=== PATIENT | female | born 1985 | race Caucasian/White ===

== ENCOUNTER → 2021-02-01 | Outpatient (CLI) | payer BC, MEDICAID ==
[~2021-02-01] MED LIST: CLIN300C3 PO; CYCL10TA9 PO; DOXY-233 PO; ESTR1TAB24 PO; ESTROTEST; IBUP-30 PO; MULT1CAP27 PO; NAPR-243 PO; NITR-65 PO; PHEN100T17 PO; PRD20T PO; PRED20TA PO; PROM25SU10; TRM50T PO
--- NOTE | 2021-02-01 16:25 | Diagnostic Imaging Report ---
INDICATION: Abdominal pain. History of constipation. COMPARISON: 01/17/2012. EXAMINATION: Two supine radiographic views of the abdomen were obtained. FINDINGS: Nondistended loops of small bowel. There is no large collection of free peritoneal air. Moderate air and stool are seen scattered throughout the colon. No unexpected radiopaque foreign body is seen. There is, however, a 13 x 5 mm extraosseous calcification projecting over the right psoas muscle at the level of the L4 transverse process. This appears to be new when compared to prior exam. 5 mm extraosseous calcifications are also seen projecting over the lower left psoas muscle at the level of the left S1 vertebral body. Please note, there is transitional lumbosacral anatomy. Bony structures show no gross acute abnormality. IMPRESSION: 1. Nonobstructed small bowel gas pattern. 2. Moderate colonic air and stool. Please correlate for constipation. 3. Extraosseous calcifications project over the bilateral psoas muscles. This could be artifact and related to gonadal vein phleboliths, but ureteral calculi cannot be entirely excluded. If further evaluation is indicated, CT is recommended. Dictated by: Dictated on workstation # [id number]
== END ==
LOC: RAD 15:15
PROVIDERS: ATTEND Family Medicine
DX: K59.00 Constipation, unspecified (principal); R10.9 Unspecified abdominal pain
CPT/HCPCS: 74018

== ENCOUNTER 2021-03-23 05:31 | Outpatient (RCR) | payer BC ==
[~2021-03-23] VITALS: Ht 175.2 cm; Wt 79.7 kg
[~2021-03-23 05:31] MED LIST changes: +ETAN50CA SQ; +FOLI1TAB33 PO; +POTA10TA36 PO; +SOLI10TA2 PO
== END 2021-03-23 13:04 | disposition home or self-care (01) ==
LOC: PREOP 05:31
PROVIDERS: ATTEND Surgery
DX: Z01.812 Encounter for preprocedural laboratory examination (principal); R10.9 Unspecified abdominal pain; Z20.822 Contact with and (suspected) exposure to COVID-19
CPT/HCPCS: 87635

== ENCOUNTER 2021-03-27 10:53 | Day surgery (SDC) | payer BC ==
[~2021-03-27] VITALS: Ht 175 cm; Wt 79.7 kg
[2021-03-27] MEDS ORDERED: LACTATED RINGERS 1,000 ML IV STA (11:14)
[2021-03-27] MEDS ORDERED: HURRICAINE EXT TUBE (BENZOCAINE) XX PRN (11:15)
[2021-03-27] MEDS ORDERED: LACTATED RINGERS 1,000 ML IV ONE (11:18)
[2021-03-27 11:20] VITALS: BP 128/83
--- NOTE | 2021-03-27 11:43 | Progress Note-Pre Operative ---
Pre-Operative Progress Note H&P Reviewed The H&P was reviewed, patient examined and no changes noted. Time Seen by Provider: 11:41 Date H&P Reviewed: Mar 27, 2021 Time H&P Reviewed: 11:41 Pre-Operative Diagnosis: LUQ pain and hx of Gastritis RAYSHAWN REYES DO Mar 27, 2021 11:43
[2021-03-27] MEDS ORDERED: MIDAZOLAM 2 MG/2 ML (VERSED) VIAL ONE (12:10)
[2021-03-27] MEDS ORDERED: PROPOFOL INJECTION 50 ML IV ONE (12:10)
[2021-03-27 12:20] VITALS: BP 102/59
--- NOTE | 2021-03-27 12:24 | Progress Note-Post Operative ---
Post-Operative Progess Note Surgeon (s)/Aircraft Engine Dismantler (s) Surgeon RAYSHAWN REYES DO Aircraft Engine Dismantler: none Pre-Operative Diagnosis LUQ pain and hx of Gastritis Post-Operative Diagnosis Gastritis Procedure & Operative Findings Date of Procedure 03/27/21 Procedure Performed/Findings PROCEDURE NOTE: After informed consent was obtained, the patient was brought to the endoscopy suite, placed in bed in left lateral decubitus position. She was administered IV sedation by the BRIDGE CONTRACTOR who then monitored her vitals the entire time, heart rate, blood pressure and pulse ox and the scope was inserted down the mouth through the esophagus into the stomach. Pushed into the stomach, past the antrum into the duodenum. Duodenum looked good. Pulled back and noted gastritis, did a biopsy of antrum, then retroflexed the scope, did not see hiatal hernia, took a picture and then pulled the scope into the GE junction, took another picture of the and then did a biopsy of the GE junction. Pushed the scope back into the stomach, suctioned all the air out of the stomach and then pulled the scope up the esophagus, took some pictures in the esophagus. At this point pulled the scope up the esophagus and out the mouth. The patient tolerated the procedure, and she recovered in endoscopy suite. Anesthesia Type IV sedation by BRIDGE CONTRACTOR Estimated Blood Loss Estimated blood loss (mL): scant Specimens/Packing Specimens Removed antral bx body of stomach bx GE jxn bx RAYSHAWN REYES DO Mar 27, 2021 12:24
[2021-03-27 12:25] VITALS: BP 102/57
--- NOTE | 2021-03-27 12:25 | Endoscopy Discharge Instruct ---
Endo Procedure/Findings Findings 1.: Gastritis Discharge Instructions - Activity: You might feel a little sleepy until tomorrow. This is due to the medicine you received to relax you. Until tomorrow, you should: NOT drive a car, operate machinery or power tools. NOT drink any alcoholic beverages. NOT make any important decisions or sign importortant papers. Do not return to work until tomorrow, unless otherwise instructed. Resume previous activities tomorrow. Diet: Start by taking liquids. If you tolerate liquids, advance to solid food. 1.: EGD in 3 years Notify Physician - If you experience excessive bleeding, unusual abdominal pain, fever, or chest pain, contact your doctor immediately. RAYSHAWN REYES DO Mar 27, 2021 12:25
[2021-03-27 12:28] VITALS: BP 115/59
[2021-03-27 12:30] VITALS: BP 118/63
[2021-03-27 13:00] VITALS: BP 111/77
--- NOTE | 2021-03-27 13:07 | Anesthesia-General Post-Op ---
MAC Patient Condition Mental Status/LOC: Same as Preop Cardiovascular: Satisfactory Nausea/Vomiting: Absent Respiratory: Satisfactory Pain: Controlled Complications: Absent Post Op Complications Complications None Follow Up Care/Instructions Patient Instructions None needed. Anesthesiology Discharge Order Discharge Order Patient is doing well, no complaints, stable vital signs, no apparent adverse anesthesia problems. SHANE CACERES DO Mar 27, 2021 13:07
== END 2021-03-27 13:05 | disposition home or self-care (01) ==
LOC: ENDO 10:53
PROVIDERS: ATTEND Surgery
DX: K29.50 Unspecified chronic gastritis without bleeding (principal); K21.00 Gastro-esophageal reflux disease with esophagitis, without bleeding; K59.00 Constipation, unspecified; Z79.899 Other long term (current) drug therapy; Z87.891 Personal history of nicotine dependence
CPT/HCPCS: 88305

== ENCOUNTER → 2021-04-07 | Outpatient (CLI) | payer BC ==
--- NOTE | 2021-04-07 09:45 | Diagnostic Imaging Report ---
PROCEDURE: US Gallbladder. TECHNIQUE: Multiple real-time grayscale images were obtained over the right upper quadrant in various projections. INDICATION: Right upper quadrant pain and left lower quadrant pain. FINDINGS: Liver is upper limits of normal in size at 17.8 cm. The portal vein is patent and shows normal direction of flow. No discrete liver mass is detected. Gallbladder is without stones or sludge. There is no wall thickening. No biliary ductal dilatation is seen. Visualized pancreas unremarkable. Aorta is nonaneurysmal. IVC is patent. Right kidney is without calculi or hydronephrosis. There is no ascites. IMPRESSION: Unremarkable gallbladder ultrasound. Dictated by: Dictated on workstation # [id number]
== END ==
LOC: RAD 08:00
PROVIDERS: ATTEND Surgery
DX: R10.32 Left lower quadrant pain (principal); R10.11 Right upper quadrant pain
CPT/HCPCS: 76705

== ENCOUNTER → 2021-04-27 | Outpatient (CLI) | payer BC ==
[~2021-04-27] MED LIST changes: +CATHETER FLUSH 10 ML SYR IV PRN
--- NOTE | 2021-04-27 13:10 | Diagnostic Imaging Report ---
INDICATION: Right upper quadrant pain. TECHNIQUE: Patient received intravenous dose of 5.1 mCi technetium-99m Choletec. Sequential imaging over the abdomen was performed. At the 30-minute interval, the patient ingested a fatty meal consisting of 8 ounces of Ensure, and continued acquisitions and gallbladder ejection quantification was performed. FINDINGS: There is prompt homogeneous distribution of radiopharmacy throughout the liver parenchyma. Within 15-minute time activity, it can be seen accumulating within the gallbladder as well as the extrahepatic bile ducts. Activity freely spilled into the proximal bowel with no scintigraphic evidence for extravasation or biliary obstruction. With fatty meal ingestion, there was normal gallbladder ejection fraction of 52%. Ensure ingestion resulted in no patient complaint. IMPRESSION: This was a normal nuclear medicine hepatobiliary scan with normal fatty meals, stimulated gallbladder ejection fraction of 52%. Dictated by: Dictated on workstation # [id number]
== END ==
LOC: CARD 10:00
PROVIDERS: ATTEND Surgery
DX: R10.11 Right upper quadrant pain (principal); R10.32 Left lower quadrant pain
CPT/HCPCS: 78227; A9537

== ENCOUNTER 2021-06-22 05:39 | Outpatient (CLI) | payer BC ==
[~2021-06-22] VITALS: Ht 175.3 cm; Wt 80.9 kg
[~2021-06-22 05:39] MED LIST changes: -CATHETER FLUSH 10 ML SYR IV PRN
[2021-06-22] MEDS ORDERED: VITA1TAB78 PO (14:41)
[2021-06-22] MEDS ORDERED: MAGN100T5 PO (14:41)
[2021-06-22] MEDS ORDERED: ASCO100T6 PO (14:41)
[2021-06-22] MEDS ORDERED: L.AC1CAP6 PO (14:41)
== END 2021-06-22 15:20 | disposition home or self-care (01) ==
LOC: PREOP 05:39
PROVIDERS: ATTEND Urology
DX: Z01.818 Encounter for other preprocedural examination (principal)

== ENCOUNTER 2021-06-29 06:20 | Day surgery (SDC) | payer BC ==
[2021-06-29] VITALS (13 sets, daily range): BP systolic 114–143; BP diastolic 57–96
[~2021-06-29] VITALS: Ht 175.3 cm; Wt 80.9 kg
[~2021-06-29 06:20] MED LIST changes: +ASCO100T6 PO; +L.AC1CAP6 PO; +MAGN100T5 PO; +VITA1TAB78 PO
[2021-06-29] MEDS ORDERED: cefTRIAXone 1,000 MG in WATER (STERILE) FOR INJECTION 10 ML IV ONE (06:45)
[2021-06-29] MEDS ORDERED: ONDANSETRON 4 MG/2 ML (SDV) Z0FRAN ONE (07:04)
[2021-06-29] MEDS ORDERED: fentaNYL INJ 100 MCG/2 ML AMP ONE ×2 (07:04→09:26)
[2021-06-29] MEDS ORDERED: LIDOCAINE PF 2% 5 ML (XYLOCAINE) VIAL ONE (07:04)
[2021-06-29] MEDS ORDERED: ROCURONIUM 10 MG/ML 5 ML SYRINGE IV ONE (07:04)
[2021-06-29] MEDS ORDERED: proPOfol 200 MG/20 ML (DIPRIVAN) VIAL IV ONE (07:04)
[2021-06-29] MEDS ORDERED: MIDAZOLAM 2 MG/2 ML (VERSED) VIAL ONE (07:04)
[2021-06-29] MEDS: LACTATED RINGERS 1,000 ML IV PRN ×2 (07:08→18:55)
[2021-06-29] MEDS ORDERED: ONDANSETRON 4 MG/2 ML (SDV) Z0FRAN IV ONE (07:15)
[2021-06-29] MEDS ORDERED: FAMOTIDINE 20MG/2ML IV (PEPCID) IV ONE (07:15)
[2021-06-29] MEDS ORDERED: SCOPOLAMINE 1.5 MG (TRANSDERM-SCOP) PATCH TOP ONE (07:15)
--- NOTE | 2021-06-29 08:08 | Progress Note-Pre Operative ---
Pre-Operative Progress Note H&P Reviewed The H&P was reviewed, patient examined and no changes noted. Date Seen by Provider: Jun 29, 2021 Time Seen by Provider: 08:08 Date H&P Reviewed: Jun 29, 2021 Time H&P Reviewed: 08:08 Pre-Operative Diagnosis: CYSTOCELE AND XIMENA EH ORTA MD Jun 29, 2021 08:08
--- NOTE | 2021-06-29 08:11 | Progress Note-Post Operative ---
Post-Operative Progess Note Surgeon (s)/Tanbark Laborer (s) Surgeon EH ORTA MD Tanbark Laborer: NONE Pre-Operative Diagnosis CYSTOCELE AND XIMENA Post-Operative Diagnosis SAME Procedure & Operative Findings Date of Procedure 06/29/21 Procedure Performed/Findings ANTERIOR REPAIR, PVS AND CYSTOSCOPY Anesthesia Type GENERAL Estimated Blood Loss Estimated blood loss (mL): LESS THAN 50 cc Specimens/Packing Specimens Removed NONE TO PATH Packing: ESTRACE VAGINAL PACK EH ORTA MD Jun 29, 2021 08:11
[2021-06-29] MEDS ORDERED: LACTATED RINGERS 1,000 ML IV SCH (08:15)
[2021-06-29] MEDS ORDERED: ESTRADIOL VAGINAL CREAM 42.5 GM (ESTRACE) VG ONE (08:24)
[2021-06-29] MEDS ORDERED: LIDOCAINE/EPI 1%-1:100,000 (XYLOCAINE) 10 ML ONE (08:25)
[2021-06-29] MEDS ORDERED: NEOSTIGMINE 3 MG/3 ML VIAL ONE (08:59)
[2021-06-29] MEDS ORDERED: GLYCOPYRROLATE 0.2 MG/ML (ROBINUL) 2 ML VIAL ONE (08:59)
[2021-06-29] MEDS ORDERED: SEVOFLURANE (ULTANE) 15 ML INHAL SOLN ONE (09:13)
[2021-06-29] MEDS ORDERED: PROMETHAZINE INJ 25 MG/ML (PHENERGAN) AMP IVP ONE (09:30)
[2021-06-29] MEDS ORDERED: fentaNYL INJ 100 MCG/2 ML AMP IVP ONE (09:30)
--- NOTE | 2021-06-29 09:57 | OPERATIVE REPORT ---
DATE OF SERVICE: 06/29/2021 PREOPERATIVE DIAGNOSIS: Cystocele and stress urinary incontinence. POSTOPERATIVE DIAGNOSES: Cystocele and stress urinary incontinence. OPERATION PERFORMED: Anterior repair and a pubovaginal sling with cystoscopy. SURGEON: Ney Orta MD ANESTHESIA: General. COMPLICATIONS: None. DESCRIPTION OF PROCEDURE: Under satisfactory general anesthesia, the patient in extended lithotomy position, genitalia, abdomen and thigh were prepped and draped in the usual sterile fashion with separate vaginal prep. Redman catheter was inserted, draining clear urine. The anterior vaginal wall was infiltrated with lidocaine with epinephrine and an incision was made in the anterior vaginal wall vertically, carried towards the fascia and dissection was carried on both sides to the pubic arch. The fascia was approximated with interrupted 2-0 Vicryl giving a very good support to the bladder and elevation. Then, I passed the sling on both sides, Desara type and the sling was sitting nicely under the mid urethra with no twisting, gapping or tension and passage of a curved hemostat easily between it and the underlying tissue. I removed the catheter and performed cystoscopy to confirm the integrity of the bladder, ureteral orifices and urethra with no foreign body and presence of the sling under the mid urethra. I left the bladder half full to perform a manual Valsalva maneuver after removing the cystoscope and it was negative. I reinserted the Redman catheter draining clear urine. The excess vaginal epithelium was removed, excised sharply and the edges of the anterior vaginal wall was approximated with a running 2-0 Vicryl Rapide type suture. A vaginal pack was 2 grams Estrace was inserted. Needle, sponge, and instruments were correct x2. ESTIMATED BLOOD LOSS: Less than 50 mL, none of which was replaced. The patient tolerated the procedure and anesthesia well and was sent to recovery room in stable condition. CC: Dr. Urrutia - requested, unable to deliver. Job ID: [id number] DocumentID: [id number] Dictated Date: 06/29/2021 09:14:47 Auto Clocks Repairer Date: 06/29/2021 09:55:45 Dictated By: NEY ORTA MD
[2021-06-29] MEDS: ONDANSETRON 4 MG/2 ML (SDV) Z0FRAN IVP PRN ×2 (10:23→11:06)
--- NOTE | 2021-06-29 10:26 | Anesthesia-General Post-Op ---
General Patient Condition Mental Status/LOC: Same as Preop Cardiovascular: Satisfactory Nausea/Vomiting: Absent Respiratory: Satisfactory Pain: Controlled Complications: Absent Post Op Complications Complications None Follow Up Care/Instructions Patient Instructions None needed. Anesthesia/Patient Condition Patient Condition Patient is doing well, no complaints, stable vital signs, no apparent adverse anesthesia problems. No complications reported per nursing. SAULO OAKLEY CRNA Jun 29, 2021 10:26
[2021-06-29] MEDS: KETOROLAC 30 MG/ML VIAL IVP PRN ×2 (13:48→20:07)
[2021-06-30 00:10] VITALS: BP 100/58
[2021-06-30] MEDS: KETOROLAC 30 MG/ML VIAL IVP PRN ×2 (02:24→09:20)
[2021-06-30 04:21] VITALS: BP 107/56
[2021-06-30 09:23] VITALS: BP 105/62
--- NOTE | 2021-06-30 09:24 | Progress Note - Urology ---
Progress Note-Urology Progress Notes/Assess & Plan Progress/Assessment & Plan DOING WELL. NO COMPLAINTS. VOIDED ONCE. DRY. HAPPY. WE WILL CHECK A PVR AND MANAGE ACCORDINGLY. DISCHARGE PLAN FULLY EXPLAINED TO HER Final Diagnosis CYSTOCELE AND XIMENA EH ORTA MD Jun 30, 2021 09:24
[2021-06-30] MEDS ORDERED: CIPR-225 PO (10:37)
[2021-06-30] MEDS ORDERED: KETO10TA PO (10:39)
== END 2021-06-30 11:30 | disposition home or self-care (01) ==
LOC: SDC 06:20 → WS 09:34 → SDC 06-30 11:30
PROVIDERS: ATTEND Urology
DX: N81.10 Cystocele, unspecified (principal); N39.3 Stress incontinence (female) (male); K21.9 Gastro-esophageal reflux disease without esophagitis; Z79.899 Other long term (current) drug therapy; Z83.3 Family history of diabetes mellitus; Z80.1 Family history of malignant neoplasm of trachea, bronchus and lung; Z80.42 Family history of malignant neoplasm of prostate
CPT/HCPCS: 57240; 57288; 87081; 94664; C1771

== ENCOUNTER 2021-07-06 13:23 | Emergency (ER) | payer BC ==
[~2021-07-06] VITALS: Ht 175 cm; Wt 67.0 kg
[~2021-07-06 13:23] MED LIST changes: +CIPR-225 PO; +KETO10TA PO
[2021-07-06] MEDS ORDERED: KETOROLAC 30 MG/ML VIAL IVP STA (13:59)
[2021-07-06] MEDS ORDERED: NS IV 1000 ML 1,000 ML IV STA (13:59)
[2021-07-06 14:04] LABS: BASOPHILS % (AUTO) 1 % (0-10); EOSINOPHILS # (AUTO) 0.1 10^3/uL (0.0-0.3); EOSINOPHILS % (AUTO) 2 % (0-10); HEMATOCRIT 41 % (35-52); LYMPHOCYTES # (AUTO) 2.3 10^3/uL (1.0-4.0); LYMPHOCYTES % (AUTO) 35 % (12-44); MEAN CORPUSCULAR HEMOGLOBIN 31 pg (25-34); MEAN CORPUSCULAR HGB CONC 34 g/dL (32-36); MEAN CORPUSCULAR VOLUME 93 fL (80-99); MEAN PLATELET VOLUME 10.3 fL (9.0-12.2); MONOCYTES # (AUTO) 0.5 10^3/uL (0.0-1.0); MONOCYTES % (AUTO) 8 % (0-12); NEUTROPHILS # (AUTO) 3.5 10^3/uL (1.8-7.8); NEUTROPHILS % (AUTO) 54 % (42-75); PLATELET COUNT 166 10^3/uL (130-400); WHITE BLOOD COUNT 6.5 10^3/uL (4.3-11.0)
--- NOTE | 2021-07-06 14:09 | ED General ---
General Chief Complaint: General Problems/Pain Stated Complaint: SHAKY,DOESN'T FEEL RIGHT Source of Information: Patient Exam Limitations: No Limitations History of Present Illness Date Seen by Provider: Jul 06, 2021 Time Seen by Provider: 13:43 Initial Comments Here with report of feeling shaky and does not feel right. She had a bladder sling done on 06/29/2021. She did not have complications afterwards but she was put on antibiotic that she has not been able to take as it was making her feel bad. She does report she has some dysuria now. She has taken Azo twice today to help as well as ibuprofen 600 mg about 6 hours ago. She called her urologist office (Dr. Francis) and he was unavailable so they instructed her to come to the emergency department. She reports that she has been persistently shaky for the last 5 to 7 days. Does report eating and drinking okay. Denies diarrhea. Denies nausea or vomiting. Timing/Duration: 5-6 Days Severity: Mild, Moderate Associated Systoms: No Cough, No Fever/Chills, No Nausea/Vomiting, No Shortness of Air; Weakness Allergies and Home Medications Allergies Coded Allergies: morphine (Verified Allergy, Severe, Anaphylaxis, 06/29/21) codeine (Verified Allergy, Unknown, 06/29/21) meperidine (Verified Allergy, Unknown, 06/29/21) sulfamethoxazole (Verified Adverse Reaction, Severe, Nausea, 06/29/21) AND A RASH trimethoprim (Verified Adverse Reaction, Severe, Nausea, 06/29/21) AND A RASH Patient Home Medication List Home Medication List Reviewed: Yes Ascorbic Acid (Vitamin C) Unknown Strength Tablet, Unknown Dose PO, (Reported) Entered as Reported by: BRAYAN WELLER on 06/22/21 1441 Ciprofloxacin HCl (Cipro) 500 Mg Tablet, 500 MG PO BID Prescribed by: JAZZY VILLEGAS on 06/30/21 1037 Etanercept (Enbrel) 50 Mg/1 Ml Cartridge, 50 MG SQ WEEK, (Reported) Entered as Reported by: AYDEN TERRY on 03/20/21 1345 Ketorolac Tromethamine (Ketorolac Tromethamine) 10 Mg Tablet, 10 MG PO Q6H PRN for PAIN-MODERATE (5-7) Prescribed by: JAZZY VILLEGAS on 06/30/21 1039 L.acidoph & Paracasei,B.lactis (Probiotic) Unknown Strength Capsule, Unknown Dose PO, (Reported) Entered as Reported by: BRAYAN WELLER on 06/22/21 1441 Magnesium Amino Acid Chelate (Magnesium) Unknown Strength Tablet, Unknown Dose PO, (Reported) Entered as Reported by: BRAYAN WELLER on 06/22/21 1441 Potassium Chloride (Potassium Chloride) 10 Meq Tab.er.prt, 10 MEQ PO DAILY, (Reported) Entered as Reported by: AYDEN TERRY on 03/20/21 1345 Vitamin D3/Vitamin K2 (D3 + K2 Dots 1,000 Units Tab) 1 Each Tab.rapdis, 1 EACH PO, (Reported) Entered as Reported by: BRAYAN WELLER on 06/22/21 1441 Review of Systems Review of Systems Constitutional: see HPI; No chills, No fever EENTM: no symptoms reported Respiratory: No cough, No short of breath Cardiovascular: No chest pain, No edema Gastrointestinal: No abdominal pain, No nausea, No vomiting Genitourinary: dysuria, pain (Postsurgical vaginal pain that is mild and is not worsening) Musculoskeletal: no symptoms reported Skin: no symptoms reported Psychiatric/Neurological: See HPI, Weakness, Other (Shaky feeling) All Other Systems Reviewed Negative Unless Noted: Yes Past Cgsamxs-Tkhgsj-Swjlsw Hx Patient Social History Tobacco Use?: No Substance use?: No Alcohol Use?: No Immunizations Up To Date Tetanus Booster (TDap): Unknown PED Vaccines UTD: No First/Initial COVID19 Vaccinat: MAY 2021 Second COVID19 Vaccination Benny: JUN 2021 Seasonal Allergies Seasonal Allergies: Yes Past Medical History Surgeries: Yes (BACK, DENTAL, bladder sling) Hysterectomy Respiratory: No Cardiac: No Neurological: No Reproductive Disorders: No Female Reproductive Disorders: Endometriosis 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 Sexually Transmitted Disease: No HIV/AIDS: No Genitourinary: Yes (BLADDER LEAKAGE) Gastrointestinal: Yes Gastroesophageal Reflux Musculoskeletal: No Arthritis, Chronic Back Pain Endocrine: No HEENT: No (GLASSES) Hearing Impairment: Denies Cancer: No Psychosocial: No Integumentary: No Psoriasis Blood Disorders: No Adverse Reaction/Blood Tranf: No Family Medical History Reviewed and Corrections made No Pertinent Family Hx Physical Exam Vital Signs Vital Signs - First Documented 07/06/21 13:36 Temp 36.9 Pulse 87 Resp 18 B/P (MAP) 143/99 (114) Pulse Ox 99 Capillary Refill : Height, Weight, BMI Height: 5'9" Weight: 160lbs. oz. 72.643237rd; 26.32 BMI Method:Stated General Appearance: No Apparent Distress, WD/WN HEENT: PERRL/EOMI, Pharynx Normal Neck: Non Tender, Supple Respiratory: Lungs Clear, Normal Breath Sounds Cardiovascular: Regular Rate, Rhythm, No Murmur Neurologic/Psychiatric: Alert, Oriented x3 Skin: Normal Color, Warm/Dry Progress/Results/Core Measures Suspected Sepsis SIRS Temperature: Pulse: Respiratory Rate: Laboratory Tests 07/06/21 13:55: White Blood Count 6.5 Blood Pressure / Mean: Laboratory Tests 07/06/21 13:55: Creatinine 0.74, Platelet Count 166, Total Bilirubin 0.5 Results/Orders Lab Results Laboratory Tests Test 07/06/21 13:55 07/06/21 15:14 Range/Units White Blood Count 6.5 4.3-11.0 10^3/uL Red Blood Count 4.47 3.80-5.11 10^6/uL Hemoglobin 14.0 11.5-16.0 g/dL Hematocrit 41 35-52 % Mean Corpuscular Volume 93 80-99 fL Mean Corpuscular Hemoglobin 31 25-34 pg Mean Corpuscular Hemoglobin Concent 34 32-36 g/dL Red Cell Distribution Width 12.2 10.0-14.5 % Platelet Count 166 130-400 10^3/uL Mean Platelet Volume 10.3 9.0-12.2 fL Immature Granulocyte % (Auto) 0 % Neutrophils (%) (Auto) 54 42-75 % Lymphocytes (%) (Auto) 35 12-44 % Monocytes (%) (Auto) 8 0-12 % Eosinophils (%) (Auto) 2 0-10 % Basophils (%) (Auto) 1 0-10 % Neutrophils # (Auto) 3.5 1.8-7.8 10^3/uL Lymphocytes # (Auto) 2.3 1.0-4.0 10^3/uL Monocytes # (Auto) 0.5 0.0-1.0 10^3/uL Eosinophils # (Auto) 0.1 0.0-0.3 10^3/uL Basophils # (Auto) 0.0 0.0-0.1 10^3/uL Immature Granulocyte # (Auto) 0.0 0.0-0.1 10^3/uL Sodium Level 138 135-145 MMOL/L Potassium Level 4.9 3.6-5.0 MMOL/L Chloride Level 103 98-107 MMOL/L Carbon Dioxide Level 24 21-32 MMOL/L Anion Gap 11 5-14 MMOL/L Blood Urea Nitrogen 11 7-18 MG/DL Creatinine 0.74 0.60-1.30 MG/DL Estimat Glomerular Filtration Rate 88 BUN/Creatinine Ratio 15 Glucose Level 94 70-105 MG/DL Calcium Level 10.0 8.5-10.1 MG/DL Corrected Calcium 9.8 8.5-10.1 MG/DL Total Bilirubin 0.5 0.1-1.0 MG/DL Aspartate Amino Transf (AST/SGOT) 31 5-34 U/L Alanine Aminotransferase (ALT/SGPT) 22 0-55 U/L Alkaline Phosphatase 67 40-136 U/L C-Reactive Protein High Sensitivity 0.20 0.00-0.50 MG/DL Total Protein 8.7 H 6.4-8.2 GM/DL Albumin 4.3 3.2-4.5 GM/DL Urine Color YELLOW Urine Clarity CLEAR Urine pH 7.5 5-9 Urine Specific [place] 1.015 L 1.016-1.022 Urine Protein NEGATIVE NEGATIVE Urine Glucose (UA) NEGATIVE NEGATIVE Urine Ketones NEGATIVE NEGATIVE Urine Nitrite NEGATIVE NEGATIVE Urine Bilirubin NEGATIVE NEGATIVE Urine Urobilinogen 0.2 < = 1.0 MG/DL Urine Leukocyte Esterase 1+ H NEGATIVE Urine RBC (Auto) NEGATIVE NEGATIVE Urine RBC NONE /HPF Urine WBC 0-2 /HPF Urine Squamous Epithelial Cells 2-5 /HPF Urine Crystals NONE /LPF Urine Bacteria NEGATIVE /HPF Urine Casts NONE /LPF Urine Mucus NEGATIVE /LPF Urine Culture Indicated NO My Orders Orders - LAURA SINGH MD Cbc With Automated Diff (07/06/21 13:59) Comprehensive Metabolic Panel (07/06/21 13:59) Hs C Reactive Protein (07/06/21 13:59) Ua Culture If Indicated (07/06/21 13:59) Ns Iv 1000 Ml (Sodium Chloride 0.9%) (07/06/21 13:59) Ed Iv/Invasive Line Start (07/06/21 13:59) Ketorolac Injection (Toradol Injection) (07/06/21 13:59) Vital Signs/I&O 07/06/21 13:36 Temp 36.9 Pulse 87 Resp 18 B/P (MAP) 143/99 (114) Pulse Ox 99 Capillary Refill : Progress Note : Progress Note Seen and evaluated. IV, labs, UA, normal saline 1 L bolus, Toradol 30 mg IV ordered. Monitor patient. 1550: Patient feels a little better and has been resting peacefully. No significant abnormalities noted on lab or UA. No indication for antibiotic. Discharged home with return precautions. Patient verbalized understanding instructions and agreement with plan. Departure Impression Primary Impression: Postoperative pain Additional Impression: Nausea Disposition: 01 HOME, SELF-CARE Condition: Improved Departure-Patient Inst. Decision time for Depature: 15:51 Referrals: ANA GRIFFIN MD (PCP/Family) Primary Care Physician Patient Instructions: Postoperative Pain (DC), Nausea and Vomiting After Surgery Add. Discharge Instructions: All discharge instructions reviewed with patient and/or family. Voiced understanding. Drink plenty of fluids and get plenty of rest. Eat a light to normal diet. Follow-up with your doctor as scheduled. Return for worse pain, fever, vomiting, weakness, breathing problems or other concerns as needed. LAURA SINGH MD Jul 06, 2021 14:08
[2021-07-06 14:17] LABS: ALBUMIN 4.3 GM/DL (3.2-4.5); POTASSIUM 4.9 MMOL/L (3.6-5.0)
[2021-07-06 14:20] LABS: TOTAL PROTEIN 8.7 GM/DL (6.4-8.2)
[2021-07-06 14:21] LABS: BILIRUBIN,TOTAL 0.5 MG/DL (0.1-1.0)
[2021-07-06 14:23] LABS: CREATININE SERUM 0.74 MG/DL (0.60-1.30)
[2021-07-06 15:22] LABS: BILIRUBIN,URINE NEGATIVE (NEGATIVE); CLARITY,URINE CLEAR; COLOR,URINE YELLOW; GLUCOSE, URINE (UA) NEGATIVE (NEGATIVE); KETONES,URINE NEGATIVE (NEGATIVE); LEUKOCYTE ESTERASE ,URINE 1+ (NEGATIVE); NITRITE,URINE NEGATIVE (NEGATIVE); PH,URINE 7.5 (5-9); PROTEIN,URINE NEGATIVE (NEGATIVE)
[2021-07-06 15:37] LABS: BACTERIA,URINE NEGATIVE /HPF; WBC,URINE 0-2 /HPF
[2021-07-06 16:17] VITALS: BP 145/87
== END 2021-07-06 16:17 | disposition home or self-care (01) ==
LOC: EDUNIT# 13:23 → ER 13:25
DX: G89.18 Other acute postprocedural pain (principal); R11.0 Nausea; Z87.19 Personal history of other diseases of the digestive system; Z88.5 Allergy status to narcotic agent
CPT/HCPCS: 36415; 80053; 81000; 85025; 86141; 96374

== ENCOUNTER → 2021-10-26 | Outpatient (CLI) | payer BC, MEDICAID ==
[~2021-10-26] MED LIST changes: -POTA10TA36 PO; +POTA10TA37 PO
--- NOTE | 2021-10-26 11:59 | Diagnostic Imaging Report ---
INDICATION: Left shoulder pain. Psoriatic arthritis. FINDINGS: 3 views. The glenohumeral joint and AC joint are in good alignment. The joint spaces are well-maintained. Articulating surfaces are smooth. No hypertrophic bony changes. No soft tissue calcification is seen about the shoulder. IMPRESSION: Normal left shoulder. Dictated by: Dictated on workstation # [id number]
== END ==
LOC: RAD 11:07
PROVIDERS: ATTEND Family Medicine
DX: M25.512 Pain in left shoulder (principal); L40.50 Arthropathic psoriasis, unspecified
CPT/HCPCS: 73030

== ENCOUNTER 2021-12-05 08:53 | Outpatient (RCR) | payer MEDICAID | END 2021-12-21 12:01 | disposition home or self-care (01) | PROVIDERS: ATTEND Family Medicine | DX: M54.2 Cervicalgia (principal); R20.2 Paresthesia of skin; M54.89 Other dorsalgia ==